=== PATIENT | female | born 1980 | race African-American/Black ===

== ENCOUNTER 2016-10-04 09:13 | Emergency (ER) | payer SELFPAY ==
[~2016-10-04] VITALS: Ht 167.6 cm; Wt 84.0 kg
[~2016-10-04 09:13] MED LIST: LEVA750T PO
[2016-10-04 09:14] VITALS: BP 136/85; PULSE 87; RESP 15; TEMP 98.2; O2SAT 99
[2016-10-04] MEDS ORDERED: SODIUM CHLOR 0.9% 1000 ML INJ 1,000 ML IV SCH (09:48)
[2016-10-04 09:55] VITALS: O2SAT 99
[2016-10-04] MEDS ORDERED: SODIUM CHLORIDE 0.9% FLUSH 10 ML FLUSH IV FLUSH PRN (10:00)
[2016-10-04] MEDS ORDERED: KETOROLAC TROMETHAMINE 30 MG/ML (IVP) VIAL IVP ONE (10:00)
[2016-10-04] MEDS ORDERED: ONDANSETRON HCL 4 MG/2 ML VIAL IVP ONE (10:00)
--- NOTE | 2016-10-04 10:00 | PD ---
HPI Chief Complaint: Cold / Flu Symptoms Time Seen by Provider: 09:41 Travel History International Travel<30 days: No Contact w/Intl Traveler<30days: No Traveled to known affect area: No History of Present Illness HPI Patient is a 36-year-old female comes in with multiple complaints. She says for the past 4 days, she has had episodes of vomiting. She says she does not know what brings it on. She says that usually after eating. She says last time she vomited was last night after eating Curt sauce. She says she feels soreness in her stomach and a pain in her chest. She says she is occasionally coughing. She denies shortness of breath. She denies fever or chills. She does admit to drinking alcohol last night. She denies any drug use. She says that she did feel like this in the past when she had pneumonia. PFS Past Medical History Medical History: Denies Significant Hx Blood Disorders: No Cardiovascular Problems: No Diminished Hearing: No Endocrine: No Genitourinary: No Immune Disorder: No Neurologic: No Psychiatric: No Reproductive: No Respiratory: No Tetanus Vaccination: < 5 Years Influenza Vaccination: No ?: Not LMP: 09/24/16 : 0 Para: 0 Miscarriage: 0 : 0 Past Surgical History Surgical History: No Previous Surgery Other Surgery: No Social History Alcohol Use: Yes (everyday) Tobacco Use: Yes (1/2 PPD) Substance Use: Yes (Marijuana on occasion ) Allergies-Medications (Allergen,Severity, Reaction): Coded Allergies: No Known Allergies (Unverified , 10/04/16) Reported Meds & Prescriptions Reported Meds & Active Scripts Active Zithromax Z-Nawaf (Azithromycin) 250 Mg Dspk 250 Mg PO DIRECTED 500 MG (2 tabs) day 1, then 1 tab days 2-5. Levaquin (Levofloxacin) 750 Mg Tab 750 Mg PO DAILY Review of Systems Except as stated in HPI: all other systems reviewed are Neg General / Constitutional: No: Fever, Chills HENT: No: Headaches, Lightheadedness Cardiovascular: Positive: Chest Pain or Discomfort Respiratory: Positive: Cough, No: Shortness of Breath Gastrointestinal: Positive: Vomiting, Abdominal Pain Genitourinary: No: Dysuria Musculoskeletal: No: Edema, Pain Skin: No Rash, No Change in Pigmentation Neurologic: No: Weakness, Dizziness Physical Exam Narrative GENERAL: Awake and alert, in no acute distress. SKIN: Focused skin assessment warm/dry. HEAD: Atraumatic. Normocephalic. EYES: Pupils equal and round. No scleral icterus. ENT: Mucous membranes pink and moist. NECK: Trachea midline. No JVD. CARDIOVASCULAR: Regular rate and rhythm. No murmur appreciated. RESPIRATORY: No accessory muscle use. Clear to auscultation. Breath sounds equal bilaterally. GASTROINTESTINAL: Abdomen soft, non-tender, nondistended. MUSCULOSKELETAL: No obvious deformities. No clubbing. No cyanosis. No edema. NEUROLOGICAL: Awake and alert. No obvious cranial nerve deficits. Motor grossly within normal limits. Normal speech. PSYCHIATRIC: Appropriate mood and affect; insight and judgment normal. Data Data Last Documented VS Vital Signs Date Time Temp Pulse Resp B/P Pulse Ox O2 Delivery O2 Flow Rate FiO2 10/04/16 09:55 99 Room Air 10/04/16 09:55 18 10/04/16 09:14 98.2 87 136/85 Orders Complete Blood Count With Diff (10/04/16 09:48) Comprehensive Metabolic Panel (10/04/16 09:48) Lipase (10/04/16 09:48) Urinalysis - C+S If Indicated (10/04/16 09:48) Ua Includes Microscopic (10/04/16 09:48) Iv Access Insert/Monitor (10/04/16 09:48) Ecg Monitoring (10/04/16 09:48) Oximetry (10/04/16 09:48) Ondansetron Inj (Zofran Inj) (10/04/16 10:00) Sodium Chlor 0.9% 1000 Ml Inj (Ns 1000 M (10/04/16 09:48) Sodium Chloride 0.9% Flush (Ns Flush) (10/04/16 10:00) Ketorolac Inj (Toradol Inj) (10/04/16 10:00) Ed Urine Pregnancytest Poc (10/04/16 09:48) Electrocardiogram (10/04/16 ) Troponin I (10/04/16 09:48) Chest, Pa & Lat (10/04/16 ) Labs Laboratory Tests Test 10/04/16 10:05 White Blood Count 9.4 TH/MM3 Red Blood Count 4.01 MIL/MM3 Hemoglobin 13.1 GM/DL Hematocrit 38.5 % Mean Corpuscular Volume 96.1 FL Mean Corpuscular Hemoglobin 32.8 PG Mean Corpuscular Hemoglobin 34.1 % Concent Red Cell Distribution Width 13.4 % Platelet Count 246 TH/MM3 Mean Platelet Volume 8.5 FL Neutrophils (%) (Auto) 73.3 % Lymphocytes (%) (Auto) 20.4 % Monocytes (%) (Auto) 4.2 % Eosinophils (%) (Auto) 1.3 % Basophils (%) (Auto) 0.8 % Neutrophils # (Auto) 6.9 TH/MM3 Lymphocytes # (Auto) 1.9 TH/MM3 Monocytes # (Auto) 0.4 TH/MM3 Eosinophils # (Auto) 0.1 TH/MM3 Basophils # (Auto) 0.1 TH/MM3 CBC Comment DIFF FINAL Differential Comment Urine Color YELLOW Urine Turbidity HAZY Urine pH 6.5 Urine Specific [place] 1.018 Urine Protein NEG mg/dL Urine Glucose (UA) NEG mg/dL Urine Ketones NEG mg/dL Urine Occult Blood TRACE Urine Nitrite NEG Urine Bilirubin NEG Urine Urobilinogen LESS THAN 2.0 MG/DL Urine Leukocyte Esterase SMALL Urine RBC 2 /hpf Urine WBC 2 /hpf Urine Squamous Epithelial 5 /hpf Cells Urine Bacteria OCC /hpf Microscopic Urinalysis Comment CULT NOT INDICATED Sodium Level 141 MEQ/L Potassium Level 4.5 MEQ/L Chloride Level 105 MEQ/L Carbon Dioxide Level 28.3 MEQ/L Anion Gap 8 MEQ/L Blood Urea Nitrogen 10 MG/DL Creatinine 0.98 MG/DL Estimat Glomerular Filtration 78 ML/MIN Rate Random Glucose 68 MG/DL Calcium Level 8.9 MG/DL Total Bilirubin 0.4 MG/DL Aspartate Amino Transf 30 U/L (AST/SGOT) Alanine Aminotransferase 37 U/L (ALT/SGPT) Alkaline Phosphatase 63 U/L Troponin I LESS THAN 0.02 NG/ML Total Protein 7.9 GM/DL Albumin 4.0 GM/DL Lipase 107 U/L [facility] Medical Decision Making Medical Screen Exam Complete: Yes Emergency Medical Condition: Yes Medical Record Reviewed: Yes Interpretation(s) ECG shows NSR at 74. No ST elevation or depression, normal intervals. Differential Diagnosis Pneumonia versus costochondritis versus gastritis versus pancreatitis Narrative Course Patient is a 36 year old female who comes in complaining of chest pain, cough and vomiting. Exam shows no acute abnormalities. IV established, labs sent. Labs show no acute abnormalities. CXR shows early RLL pneumonia. Patient given IVF, Zofran and Toradol. She reports feeling better. She will be discharged with prescription for Azithromycin. Advised to follow up with a primary care doctor. Advised to return to the ED as needed for any worsening symptoms. Diagnosis Primary Impression: Pneumonia Qualified Code: J18.1 - Pneumonia of right lower lobe due to infectious organism Patient Instructions: Community Acquired Pneumonia (ED), General Instructions Departure Forms: Tests/Procedures, Work Release Enter return to work date: Oct 06, 2016 Additional Instructions: Take all of your antibiotic. Follow up with a primary care doctor. Return to the ED as needed for any worsening symptoms. Scripts Azithromycin (Zithromax Z-Nawaf)250 Mg [id number] Mg PO DIRECTED #1 DSPK Ref 0 500 MG (2 tabs) day 1, then 1 tab days 2-5. Prov:Rosio Forbes MD 10/04/16 Disposition: 01 DISCHARGE HOME Condition: Stable Rosio Forbes MD Oct 04, 2016 10:00
[2016-10-04 10:29] LABS: AUTOMATED NEUTROPHIL # 6.9 TH/MM3 (1.8-7.7); BASOPHIL # 0.1 TH/MM3 (0-0.2); BASOPHIL % 0.8 % (0.0-2.0); EOSINOPHIL # 0.1 TH/MM3 (0-0.4); EOSINOPHIL % 1.3 % (0.0-4.0); HEMATOCRIT 38.5 % (35.0-46.0); HEMO FLAGS DIFF FINAL; LYMPH % 20.4 % (9.0-44.0); LYMPHOCYTE # 1.9 TH/MM3 (1.0-4.8); MEAN CELL VOLUME 96.1 FL (80.0-100.0); MEAN CORPUSCULAR HEMOGLOBIN 32.8 PG (27.0-34.0); MEAN CORPUSCULAR HGB CONC 34.1 % (32.0-36.0); MONO % 4.2 % (0.0-8.0); NEUT % 73.3 % (16.0-70.0); PLATELET COUNT 246 TH/MM3 (150-450); RED BLOOD COUNT 4.01 MIL/MM3 (4.00-5.30); RED CELL DISTRIBUTION WIDTH 13.4 % (11.6-17.2); WHITE BLOOD COUNT 9.4 TH/MM3 (4.0-11.0)
--- NOTE | 2016-10-04 10:31 | RADRPT ---
EXAM DATE/TIME: 10/04/2016 10:30 [place] COMPARISON: CHEST PA & LAT, December 15, 2015, 12:06. INDICATIONS : Congestion. MEDICAL HISTORY : None. SURGICAL HISTORY : None. ENCOUNTER: Initial ACUITY: 4 - 6 days PAIN SCORE: 0/10 LOCATION: Bilateral chest FINDINGS: PA and lateral views of the chest demonstrate the lungs to be symmetrically aerated without evidence of mass, or effusion. The previously noted right upper lobe consolidation has cleared. There is no mi ld patchy opacity in the right lower lobe. Left lung remains clear. The cardiomediastinal contours ar e unremarkable. Osseous structures are intact. CONCLUSION: Mild patchy opacity in the right lower lobe of concern for early pneumonia. Erwin Buenrostro MD on October 04, 2016 at 10:29 Board Certified Radiologist. This report was verified electronically.
[2016-10-04 10:34] LABS: BACTERIA, URINE OCC /hpf; BLOOD, URINE TRACE (NEG); COMMENT (UR) CULT NOT INDICATED; CULTURE IF INDICATED CULT NOT INDICATED; GLUCOSE,URINE NEG (NEG); KETONE, URINE NEG (NEG); NITRITE,URINE NEG (NEG); PH, URINE 6.5 (5.0-8.5); SQUAMOUS EPITHELIAL CELL URINE 5 /hpf (0-5); URINE COLOR YELLOW (YELLW/STRAW)
[2016-10-04 10:41] LABS: ALKALINE PHOSPHATASE 63 U/L (45-117); ALT (GPT) 37 U/L (10-53); TOTAL BILIRUBIN ADULT 0.4 MG/DL (0.2-1.0)
[2016-10-04 10:47] LABS: ANION GAP 8 MEQ/L (5-15); AST (GOT) 30 U/L (15-37); BICARBONATE 28.3 MEQ/L (21.0-32.0); BLOOD UREA NITROGEN 10 MG/DL (7-18); CHLORIDE 105 MEQ/L (98-107); GLOMERULAR FILTRATION RATE 78 ML/MIN (>89); POTASSIUM 4.5 MEQ/L (3.5-5.1); SODIUM (NA) 141 MEQ/L (136-145)
[2016-10-04] MEDS ORDERED: ZITHTAB PO (11:20)
--- NOTE | 2016-10-04 14:43 | EKG ---
Date Performed: 10/04/2016 Time Performed: 10:12:27 PTAGE: 36 years EKG: Sinus rhythm NORMAL ECG PREVIOUS TRACING : 12/15/2015 12.40 Since previous tracing, no significant change noted DOCTOR: Iain Santana Interpretating Date/Time 10/04/2016 14:41:47
== END 2016-10-04 11:51 | disposition home or self-care (01) ==
LOC: NEPD 09:13
DX: J18.1 Lobar pneumonia, unspecified organism (principal); F10.10 Alcohol abuse, uncomplicated; F17.290 Nicotine dependence, other tobacco product, uncomplicated; F12.10 Cannabis abuse, uncomplicated; R07.9 Chest pain, unspecified
CPT/HCPCS: 71020; 80053; 81001; 83690; 84484; 84703; 85025; 93005; 96361; 96374; 96375; 99285; J1885; J2405; J7030